=== PATIENT | male | born 1960 | race Caucasian/White ===

== ENCOUNTER 2019-11-18 14:24 | Emergency (ER) | payer MEDICAID ==
[~2019-11-18] VITALS: Ht 165.1 cm; Wt 109.0 kg
[2019-11-18 15:02] VITALS: BP 118/72
[2019-11-18] MEDS ORDERED: VENL25TA48 PO (15:55)
[2019-11-18] MEDS ORDERED: VENL150C2 PO (15:55)
[2019-11-18] MEDS ORDERED: LISI40TA4 PO (15:55)
[2019-11-18] MEDS ORDERED: PRAZ5CAP2 PO (15:55)
[2019-11-18 16:13] LABS: CLARITY,URINE SLIGHTLY CLOUDY (Clear); COLOR,URINE YELLOW (Yellow); GLUCOSE, URINE 100 mg/dl (Neg); KETONES,URINE NEGATIVE (Neg); LEUKOCYTE ESTERASE ,URINE NEGATIVE (Neg); NITRITES, URINE NEGATIVE (Neg); OCCULT BLOOD,URINE NEGATIVE (Neg); PH,URINE 5.5 (4.8-8.0); PROTEIN,URINE NEGATIVE (Neg)
[2019-11-18 16:17] LABS: BASOPHILS % (AUTO) 0.7 % (0-1); EOSINOPHILS # (AUTO) 0.1 X10'3 (0-0.9); EOSINOPHILS % (AUTO) 1.8 % (0-6); HEMATOCRIT 40.1 % (42.0-52.0); HEMOGLOBIN 13.7 g/dl (14.0-17.9); LYMPHOCYTES # (AUTO) 2.3 X10'3 (1.1-4.8); LYMPHOCYTES % (AUTO) 31.5 % (21-51); MEAN CORPUSCULAR HEMOGLOBIN 32.4 PG (27.0-31.0); MEAN CORPUSCULAR HGB CONC 34.2 g/dL (33.0-36.5); MEAN CORPUSCULAR VOLUME 94.5 FL (78-98); MEAN PLATELET VOLUME 8.6 FL (7.4-10.4); MONOCYTES # (AUTO) 0.5 X10'3 (0-0.9); MONOCYTES % (AUTO) 7.1 % (2-12); NEUTROPHILS # (AUTO) 4.3 X10'3 (1.8-7.7); NEUTROPHILS % (AUTO) 58.9 % (42-75); PLATELET COUNT 255 X10'3 (140-440); RED BLOOD COUNT 4.24 X10'6 (4.70-6.10); RED CELL DISTRIBUTION WIDTH 13.1 % (11.5-14.5); WHITE BLOOD COUNT 7.3 X10'3 (4.5-11.0)
[2019-11-18 16:18] LABS: UA COLLECTION TYPE CLN CATCH MIDSTREAM
[2019-11-18 16:21] LABS: HYALINE CASTS 0-3 /LPF (NEGATIVE); MUCUS STRANDS FEW /LPF (Neg); SQUAMOUS EPITHELIAL CELL,UR MODERATE /LPF (FEW)
[2019-11-18 16:22] LABS: BACTERIA,URINE FEW /HPF (Neg); RBC,URINE 0-2 /HPF (0-2); WBC,URINE 0-4 /HPF (0-4)
--- NOTE | 2019-11-18 16:40 | NUR ---
Pt arrives via EMS from [facility]. States was there to talk to therapist and somehow ended up here. States therapist asked if he was feeling suicidal and he answered "yes". Also when asked if he had a plan, he answered "yeah, I guess I would run into a pillar at 100 mph". However, pt states he is not feeling suicidal. He takes his to her appointments every day and has to do this x 7 weeks, so he does not want to be here. He is calm and cooperative, answers questions appropriately. Has never been in a psychiatric hospital before and has never attempted suicide.
[2019-11-18 16:41] LABS: ALBUMIN 3.8 G/DL (3.4-5.0); ANION GAP 8 (8-16); BLOOD UREA NITROGEN 26 MG/DL (7-18); BUN/CREATININE RATIO 22.4 (5.4-32.0); CALCIUM 8.6 MG/DL (8.5-10.1); CHLORIDE 105 MMOL/L (99-107); CREATININE 1.16 MG/DL (0.60-1.10); ETHANOL < 0.010 GM/DL (0.0-0.010); GLUCOSE 91 MG/DL (70-104); POTASSIUM 3.9 MMOL/L (3.5-5.1); SODIUM 140 MMOL/L (135-145); TOTAL CARBON DIOXIDE 27.1 MMOL/L (24-32); eGFR 64 ML/MIN
[2019-11-18 17:41] LABS: URINE AMPHETAMINE SCREEN NEGATIVE (Neg); URINE BARBITUATE SCREEN NEGATIVE (Neg); URINE BENZODIAZEPINES SCREEN NEGATIVE (Neg); URINE CANNABINOID SCREEN NEGATIVE (Neg); URINE COCAINE SCREEN NEGATIVE (Neg); URINE METHADONE SCREEN NEGATIVE (Neg); URINE OPIATE SCREEN NEGATIVE (Neg); URINE PHENCYCLIDINE SCREEN NEGATIVE (Neg)
--- NOTE | 2019-11-18 19:00 | NUR ---
Pt being evaluated by [facility]. Pt is calm and cooperative with assessment.
--- NOTE | 2019-11-18 19:46 | NUR ---
Discharge note: Pt found to not meet criteria for 5150, he called his and she is here to pick him up. All belongings returned to the pt and he was walked out front. Pt smiling and denies s.i.
== END 2019-11-18 19:47 ==
LOC: ER 14:25
DX: R45.851 Suicidal ideations (principal); Z79.899 Other long term (current) drug therapy
CPT/HCPCS: 36415; 80048; 80305; 80320; 81001; 84443; 85025; 99285